=== PATIENT | male | born 1975 | race Caucasian/White ===

== ENCOUNTER 2020-10-19 16:39 | Emergency (ER) | payer MEDICAID, SELFPAY ==
[~2020-10-19] VITALS: Ht 172.7 cm; Wt 83.9 kg
[~2020-10-19 16:39] MED LIST: METR500T1 IV; ROC2I IV
--- NOTE | 2020-10-19 16:39 | NUR ---
BIBA TAKEN TO BED 11
--- NOTE | 2020-10-19 16:40 | NUR ---
45M BIBA c/c dizziness, n/v, hunger, thirst, shaky/weakness x1 day, 5/10 sharp L sided head pain. EMS reports glucose at 514 en route. Pt denies abd pain, has even and unlabored breathing. Denies chest pain, palpitations, dysuria, Smile symmetrical, CMS+ PMH: Stroke x2mos ago [facility] RX: Tylenol, insulin
[2020-10-19 16:45] VITALS: BP 118/75
[2020-10-19] MEDS ORDERED: ONDANSETRON 4 MG/2 ML VIAL IVP ONE ×2 (16:50→17:00)
[2020-10-19] MEDS ORDERED: NACL 0.9% 1,000 ML IV ONE ×2 (16:50→18:05)
--- NOTE | 2020-10-19 16:53 | NUR ---
RT AT BEDSIDE
--- NOTE | 2020-10-19 16:53 | NUR ---
EKG AT BEDSIDE
--- NOTE | 2020-10-19 17:09 | NUR ---
rad at bedside
--- NOTE | 2020-10-19 17:09 | NUR ---
lab at bedside
[2020-10-19 17:14] LABS: BASOPHILS # (AUTO) 0.2 K/uL (0.00-0.22); BASOPHILS % (AUTO) 0.9 % (0.0-2.0); EOSINOPHILS # (AUTO) 0.1 K/uL (0-0.4); EOSINOPHILS % (AUTO) 0.6 % (0.0-4.0); HEMATOCRIT 45.1 % (36-52); HEMOGLOBIN 15.5 g/dL (12.0-18.0); LYMPHOCYTES # (AUTO) 4.1 K/uL (2.0-11.5); LYMPHOCYTES % (AUTO) 24.4 % (20.5-51.1); MEAN CORPUSCULAR HEMOGLOBIN 31 pg (27-31); MEAN CORPUSCULAR HGB CONC 34 g/dL (33-37); MONOCYTES # (AUTO) 0.9 K/uL (0.8-1.0); MONOCYTES % (AUTO) 5.6 % (1.7-9.3); NEUTROPHILS # (AUTO) 11.5 K/uL (1.8-7.7); NEUTROPHILS % (AUTO) 68.5 % (42.2-75.2); PLATELET COUNT (AUTO) 319 K/uL (140-450); RED BLOOD CELL COUNT(AUTO) 4.95 MIL/uL (4.20-6.10); RED CELL DISTRIBUTION WIDTH 12.9 % (11.6-13.7); WHITE BLOOD COUNT (AUTO) 16.8 K/uL (4.8-10.8)
[2020-10-19 17:17] LABS: APPEARANCE,URINE CLEAR (CLEAR); BILIRUBIN,URINE NEGATIVE (NEGATIVE); BLOOD, URINE NEGATIVE (NEGATIVE); COLOR,URINE YELLOW (YELLOW); LEUKOCYTE ESTERASE ,URINE NEGATIVE (NEGATIVE); NITRITE, URINE NEGATIVE (NEGATIVE); UGLUCOSE 3+ (NEGATIVE)
--- NOTE | 2020-10-19 17:20 | NUR ---
Pt went to CT via [facility]
--- NOTE | 2020-10-19 17:33 | NUR ---
Pt back from CT via [facility].
[2020-10-19 17:40] LABS: ACETONE, SERUM NEGATIVE (NEGATIVE)
[2020-10-19 17:55] LABS: ALBUMIN 4.3 g/dL (3.4-5.0); ANION GAP 15.5 (8-16); ASPARTATE AMINOTRANSFERASE 5 U/L (15-37); CARBON DIOXIDE 24.8 mmol/L (21-32); CHLORIDE 98 mmol/L (98-107); CREATININE 0.9 mg/dL (0.6-1.3); GFR ARICAN-AMERICAN 117 mL/min (>90); POTASSIUM 3.3 mmol/L (3.5-5.1); SODIUM SERUM 135 mmol/L (136-145); TOTAL BILIRUBIN 0.2 mg/dL (0.0-1.0); UREA NITROGEN, BLOOD 15 mg/dL (7-18)
[2020-10-19 18:00] LABS: GLUCOSE 453 mg/dL (74-106)
[2020-10-19] MEDS ORDERED: KETOROLAC 30 MG/ML VIAL IVP ONE (18:30)
--- NOTE | 2020-10-19 19:09 | NUR ---
REPORT RECIEVED FROM SHANTEL KEITH FOR CHANGE OF SHIFT.
--- NOTE | 2020-10-19 19:11 | NUR ---
Report given to SHANTEL Fuentes. Transfer of care at this time.
[2020-10-19 19:21] LABS: BARBITURATE, URINE NEGATIVE ng/ml (NEG <=200); BENZODIAZEPINE, URINE NEGATIVE ng/mL (NEG <=200); CANNABINOID, URINE NEGATIVE ng/mL (NEG <=50); COCAINE, URINE NEGATIVE ng/mL (NEG <=300); OPIATE, URINE NEGATIVE ng/mL (NEG <=2000); PHENCYCLIDINE SCREEN,URINE NEGATIVE ng/mL (NEG <=25)
--- NOTE | 2020-10-19 19:34 | NUR ---
Patient appears to be resting comfortably in bed. Vital Signs within normal limits. Respirations even and unlabored. PATIENT DENIES PAIN OR DISCOMFORT AT THIS TIME.
--- NOTE | 2020-10-19 19:41 | NUR ---
AMBUALTED PATIENT PER ERMD REQUEST. PATIENT HAD STEADY GAIT. PATIENT DENIES NAUSEA, DIZZINESS OR PAIN. PATIENT STATED, "I FEEL SO MUCH BETTER."
[2020-10-19] MEDS ORDERED: ONDA4ODT2 PO (20:02)
[2020-10-19 20:15] VITALS: BP 116/76
--- NOTE | 2020-10-19 20:15 | NUR ---
Patient discharged with v/s stable. Written and verbal after care instructions given and explained. Patient alert, oriented and verbalized understanding of instructions. Ambulatory with steady gait. All questions addressed prior to discharge. ID band removed. Patient advised to follow up with PMD. Rx of ONDANSETRON given. Patient educated on indication of medication including possible reaction and side effects. Opportunity to ask questions provided and answered.
== END 2020-10-19 20:15 | disposition home or self-care (01) ==
LOC: MED 16:39
DX: E11.65 Type 2 diabetes mellitus with hyperglycemia (principal); R11.2 Nausea with vomiting, unspecified; Z86.73 Personal history of transient ischemic attack (TIA), and cerebral infarction without residual deficits; E78.00 Pure hypercholesterolemia, unspecified
CPT/HCPCS: 36415; 36600; 70450; 71045; 80053; 80305; 81003; 82009; 82803; 85025; 93005; 96361; 96374; 96375; 99285; J1885; J2405; J7030